=== PATIENT | male | born 1970 | race Caucasian/White ===

== ENCOUNTER 2019-02-15 23:49 | Emergency (ER) | payer OTHER ==
[~2019-02-15] VITALS: Ht 182.9 cm; Wt 80.7 kg
[~2019-02-15 23:49] MED LIST: Bactrim Ds Tab1 EACH PO; CYCL10 PO; NAPR550 PO; OXYACE5T PO; Percocet 5-3251 EACH PO; Prednisone20 MG PO; RXCYCL10 PO; RXNAPNA550 PO; Zofran4 MG PO
== END 2019-02-16 03:24 | disposition home or self-care (01) ==
LOC: ER 23:49
DX: L25.5 Unspecified contact dermatitis due to plants, except food (principal); F17.200 Nicotine dependence, unspecified, uncomplicated
CPT/HCPCS: 96372; 99283-25; J3301